=== PATIENT | male | born 1985 | race Asian ===

== ENCOUNTER 2019-08-27 21:23 | Emergency (ER) | payer OTHER ==
[~2019-08-27] VITALS: Ht 190.5 cm; Wt 109.8 kg
[2019-08-27 23:06] VITALS: BP 136/81; TEMP 100
== END 2019-08-27 23:07 | disposition home or self-care (01) ==
LOC: ED 21:23
DX: J10.1 Influenza due to other identified influenza virus with other respiratory manifestations (principal)
CPT/HCPCS: 87502; 87651; 99283